=== PATIENT | female | born 1965 | race Hispanic/Latino ===

== ENCOUNTER 2017-05-14 22:00 | Emergency (ER) | payer SELFPAY ==
[2017-05-14] MEDS ORDERED: METOCLOPRAMIDE 10 MG TABLET ONE (22:56)
[2017-05-14] MEDS ORDERED: ACETAMINOPHEN 325 MG TAB ONE (22:56)
[2017-05-14] MEDS ORDERED: IBUPROFEN 200 MG TAB ONE (23:57)
[2017-05-14] MEDS ORDERED: IBUPROFEN 400 MG TABLET ONE (23:57)
== END 2017-05-15 00:33 | disposition home or self-care (01) ==
LOC: EDH 22:00
DX: G44.209 Tension-type headache, unspecified, not intractable (principal); J06.9 Acute upper respiratory infection, unspecified
CPT/HCPCS: 87804